=== PATIENT | male | born 1955 | race Caucasian/White ===

== ENCOUNTER 2020-12-03 11:47 | Emergency (ER) | payer BC ==
--- NOTE | 2020-12-03 13:47 | EDM.PDOC ---
ED HPI GENERAL MEDICAL PROBLEM - General Chief Complaint: Eye Problems Stated Complaint: [id number] NOTICED PAIN FLOATERS PRESSURE L EYE Time Seen by Provider: 12/03/20 13:43 Source of Information: Reports: Patient, Family (), RN, RN Notes Reviewed History Limitations: Reports: No Limitations - History of Present Illness INITIAL COMMENTS - FREE TEXT/NARRATIVE: Milton is a 65 y/o male who presents to the ED via personal vehicle with complaints of left eye pressure and transient floaters. The patient reports his symptoms began approximately two days ago and has maintained in severity over that time. The patient reports history of a small macular hemorrhage that was diagnosed at his optometrists office in September 2020. He has been following with his install technician [id number] for reassessment since that time with almost complete resolution of the bleed. Additionally, he reports history of vitriol detachment in the right eye in 2015. He denies loss of visual acuity, left eye pain, headache, or vision changes. He denies recent illness, fever, shaking chills, chest pain, or palpitations. 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 Additionally, he has been performing more frequent night driving as he is currently travelling through the area. He has taken all of his medications as prescribed. left eye Pain Score (Numeric/FACES): 2 - Related Data Allergies Allergy/AdvReac Type Severity Reaction Status Date / Time No Known Allergies Allergy Verified 12/03/20 12:15 Home Meds: Home Meds Cetirizine [ZyrTEC] 5 mg PO DAILY 12/03/20 [History] Cholecalciferol (Vitamin D3) [Vitamin D3] 10 mcg PO DAILY 12/03/20 [History] Metoprolol Tartrate 25 mg PO .QAM 12/03/20 [History] Metoprolol Tartrate 50 mg PO BEDTIME 12/03/20 [History] Multivitamin [Multi-Vitamin Daily] 1 each PO DAILY 12/03/20 [History] Non-Formulary Medication [NF Drug] 1 each PO DAILY 12/03/20 [History] Sertraline [Zoloft] 50 mg PO DAILY 12/03/20 [History] Ubiquinol 100 mg PO DAILY 12/03/20 [History] Past Medical History HEENT History: Reports: Other (See Below) Other HEENT History: macular bleed September 2020 Cardiovascular History: Reports: Hypertension Respiratory History: Reports: None Gastrointestinal History: Reports: None Genitourinary History: Reports: None Musculoskeletal History: Reports: None Neurological History: Reports: None Psychiatric History: Reports: Depression Endocrine/Metabolic History: Reports: None Hematologic History: Reports: None Immunologic History: Reports: None Oncologic (Cancer) History: Reports: None Dermatologic History: Reports: None - Infectious Disease History Infectious Disease History: Reports: None - Past Surgical History HEENT Surgical History: Reports: None Cardiovascular Surgical History: Reports: None Respiratory Surgical History: Reports: None GI Surgical History: Reports: Hernia Repair/Other, Other (See Below) Other GI Surgeries/Procedures: umbilical repair November 02, 2020 Male Surgical History: Reports: None Musculoskeletal Surgical History: Reports: None Social & Family History - Family History Family Medical History: No Pertinent Family History - Tobacco Use Tobacco Use Status *Q: Never Tobacco User Second Hand Smoke Exposure: No - Caffeine Use Caffeine Use: Reports: Coffee, Soda - Recreational Drug Use Recreational Drug Use: No ED ROS GENERAL - Review of Systems Review Of Systems: Comprehensive ROS is negative, except as noted in HPI. ED EXAM GENERAL W FULL EYE - Physical Exam Exam: See Below Exam Limited By: No Limitations General Appearance: Alert, No Apparent Distress Eye Exam: Bilateral Eye: EOMI, Normal Inspection, PERRL (3mm) Visual Acuity (R) 20/: 15 Visual Acuity (L) 20/: 15 With Correction: Yes Eyelids: Bilateral: Normal Appearance, Lid Everted for Exam Conjunctiva & Sclera: Bilateral: Normal Appearance Extraocular Movements: Bilateral: Intact Pupils: Normal Accommodation Pupillary Size: Bilateral: 3 mm Pupillary Reaction: Bilateral: Brisk Anterior Chamber: Bilateral: Normal Appearance Ears: Normal External Exam, Normal Canal, Hearing Grossly Normal, Normal TMs Nose: Normal Inspection, Normal Mucosa, No Blood Throat/Mouth: Normal Inspection, Normal Lips, Normal Teeth, Normal Gums, Normal Oropharynx, Normal Voice, No Airway Compromise Head: Atraumatic, Normocephalic Neck: Normal Inspection, Supple, Non-Tender, Full Range of Motion. No: Lymphadenopathy (L), Lymphadenopathy (R) Respiratory/Chest: No Respiratory Distress, Lungs Clear, Normal Breath Sounds, No Accessory Muscle Use, Chest Non-Tender Cardiovascular: Normal Peripheral Pulses, Regular Rate, Rhythm, No Edema, No Gallop, No JVD, No Murmur, No Rub GI/Abdominal: Normal Bowel Sounds, Soft, Non-Tender Neurological: Alert, Oriented Psychiatric: Normal Affect, Normal Mood Skin Exam: Warm, Dry, Intact, Normal Color, No Rash. No: Cyanosis, Jaundice, Mottled, Pallor Lymphatic: No Adenopathy Course - Vital Signs Last Recorded V/S: Last Vital Signs Temp 97.4 F 12/03/20 12:05 Pulse 55 L 12/03/20 12:05 Resp 20 12/03/20 12:05 BP 130/88 12/03/20 12:05 Pulse Ox 97 12/03/20 12:05 - Re-Assessments/Exams Free Text/Narrative Re-Assessment/Exam: 12/03/20 Findings of examination reviewed with patient and . Discussed supportive cares as well as follow up with install technician early this coming week. Red flag signs and symptoms which would warrant reevaluation reviewed. Patient and verbalized understanding and agreement with the plan of care. Departure - Departure Time of Disposition: 13:44 Disposition: Home, Self-Care 01 Condition: Good Clinical Impression: Left eye pain Visual floaters Qualifiers: Laterality: left Qualified Code(s): H43.392 - Other vitreous opacities, left eye - Discharge Information *PRESCRIPTION DRUG MONITORING PROGRAM REVIEWED*: Not Applicable *COPY OF PRESCRIPTION DRUG MONITORING REPORT IN PATIENT DEMI: Not Applicable Forms: ED Department Discharge Additional Instructions: 1.) Continue to monitor eye for increased pain, redness, drainage, or decreased vision acuity. 2.) Follow up with your install technician on Saturday, or return to the emergency department should symptoms worsen. 3.) Avoid eye strain, including prolonged screen time or night driving. Sepsis Event Note (ED) - Evaluation Sepsis Screening Result: No Definite Risk
== END 2020-12-03 13:52 | disposition home or self-care (01) ==
LOC: DL.ED 11:47
DX: H43.392 Other vitreous opacities, left eye (principal); I10 Essential (primary) hypertension
CPT/HCPCS: 99283